=== PATIENT | male | born 1970 | race Caucasian/White ===

== ENCOUNTER 2019-03-28 06:28 | Inpatient (IN) ==
[2019-03-28] MEDS ORDERED: CeFAZolin Syr 2,000MG/20 ML 2,000 MG/20 ML SYRINGE IVPB ONE (06:55)
[2019-03-28] MEDS ORDERED: Albuterol 2.5 MG/3 ML NEBULIZER IH PRN (06:55)
[2019-03-28] MEDS ORDERED: *HR* FentaNYL (PF) 100 MCG/2 ML VIAL ONE (06:58)
[2019-03-28] MEDS ORDERED: Heparin 1,000 UNITS/500 mL 500 ML ONE (06:58)
[2019-03-28] MEDS ORDERED: *HR* Midazolam HCl 2 MG/2 ML VIAL ONE (06:58)
[2019-03-28] MEDS ORDERED: *HR* Propofol 200 MG/20 ML VIAL IVP ONE ×2 (06:58→10:06)
[2019-03-28] MEDS ORDERED: Lidocaine -MPF 4% 5 ML AMPUL ONE (07:00)
[2019-03-28] MEDS ORDERED: Ondansetron 4 MG/2 ML VIAL ONE (07:00)
[2019-03-28] MEDS ORDERED: Ringers Solution, Lactated 1,000 ML IVC SCH (07:00)
[2019-03-28] MEDS ORDERED: Lidocaine -MPF 2% 2 ML VIAL ONE (07:00)
[2019-03-28] MEDS ORDERED: Dexamethasone 4 MG/ML VIAL ONE (07:00)
[2019-03-28] MEDS ORDERED: *HR* Succinylcholine 200 MG/10 ML VIAL IVP ONE (07:00)
[2019-03-28] MEDS ORDERED: *HR* Heparin 5,000 UNIT/ML VIAL ONE (07:04)
[2019-03-28] MEDS ORDERED: EPHEDrine 50 MG/ML VIAL ONE (07:10)
[2019-03-28] MEDS ORDERED: *HR* Remifentanil 2 MG VIAL IVP ONE (07:16)
[2019-03-28] MEDS ORDERED: *HR* Phenylephrine 10 MG/ML VIAL ONE (07:16)
[2019-03-28] MEDS ORDERED: Protamine Sulfate 50 MG/5 ML VIAL IVP ONE (07:16)
[2019-03-28] MEDS ORDERED: Heparin 1,000 UNITS/500 mL 1,000 ML ONE (07:16)
[2019-03-28] MEDS ORDERED: *HR* HYDROmorphone (PF) 1 MG/ML SYRINGE IVP PRN (07:30)
[2019-03-28] MEDS ORDERED: *HR* OxyCODONE Immed Rel 5 MG TABLET PO PRN (07:30)
[2019-03-28] MEDS ORDERED: *HR* HYDROmorphone 2 MG/ML SYRINGE IVP PRN (07:30)
[2019-03-28] MEDS ORDERED: *HR* Promethazine 25 MG/ML VIAL IVP PRN (07:30)
[2019-03-28] MEDS ORDERED: Ondansetron 4 MG/2 ML VIAL IVP ONE (07:30)
[2019-03-28] MEDS ORDERED: Famotidine 20 MG/2 ML VIAL IVP ONE (07:30)
[2019-03-28] MEDS ORDERED: *HR* Labetalol 20 MG/4 ML SYRINGE IVP PRN ×2 (07:30→13:35)
[2019-03-28] MEDS ORDERED: NiCARdipine 2.5 MG/10 ML Syringe IVPB ONE (07:34)
[2019-03-28] MEDS ORDERED: ceFAZolin 1,000 MG, Sodium Chloride IRRigation 1,000 ML IR ONE (07:45)
[2019-03-28] MEDS ORDERED: *HR* Remifentanil 1 MG VIAL IVP ONE (10:41)
[2019-03-28] MEDS ORDERED: Ondansetron 4 MG/2 ML VIAL IVP PRN (13:35)
[2019-03-28] MEDS ORDERED: Naloxone 0.4 MG/ML INJ IVP PRN (13:35)
[2019-03-28] MEDS ORDERED: Acetaminophen 325 MG TABLET PO PRN (13:35)
[2019-03-28] MEDS: *HR* OxyCODONE Immed Rel 5 MG TABLET PO PRN ×2 (14:03→20:25)
[2019-03-28] MEDS ORDERED: Chloraseptic Spray 177 ML BOTTLE MM PRN (15:13)
[2019-03-28] MEDS ORDERED: Ketorolac 30 MG/ML VIAL IVP ONE (15:14)
[2019-03-28] MEDS: Nicotine 21 MG PATCH.TD24 TD SCH (16:19)
[2019-03-28] MEDS ORDERED: Acetaminophen IV 1,000 MG/100 ML INFUS..BTL IVPB PRN (18:00)
[2019-03-28] MEDS ORDERED: Aspirin Enteric Coated 81 MG Tablet PO SCH (18:00)
[2019-03-28] MEDS ORDERED: Metoprolol XL (24 HR) Succ 25 MG TAB.ER.24H PO SCH (18:00)
[2019-03-28] MEDS ORDERED: Isosorbide MONOnitrate (24 HR) 30 MG TAB.ER.24H PO SCH (18:00)
[2019-03-28] MEDS: Ketorolac 15 MG/ML VIAL IVP SCH (23:29)
[2019-03-29] MEDS: Ketorolac 15 MG/ML VIAL IVP SCH (05:42)
[2019-03-29 06:11] LABS: Basophils # 0.1 K/mcL (0.0-0.2); Basophils % 0.5 %; Eosinophils # 0.1 K/mcL (0.0-0.6); Eosinophils % 0.4 %; Hematocrit 38.7 % (37.5-50.1); Hemoglobin 13.1 g/dL (12.9-16.9); Immature Granulocytes % 0.4 % (0-4); Lymphocytes # 2.5 K/mcL (0.6-4.6); Lymphocytes % 20.8 %; Mean Corpuscular HGB Conc 33.9 g/dL (31.6-35.5); Mean Corpuscular Hemoglobin 30.8 pg (28.0-33.3); Mean Corpuscular Volume 90.8 fL (83.0-100.0); Mean Platelet Volume 11.3 fL (9.4-12.4); Monocytes # 0.7 K/mcL (0.0-1.3); Monocytes % 5.9 %; Neutrophils # 8.7 K/mcL (1.6-8.9); Platelet Count 215 K/mcL (140-400); Red Blood Count 4.26 M/mcL (4.19-5.50); Red Cell Distribution Width 12.7 % (11.5-14.5)
[2019-03-29 06:31] LABS: BUN/Creatinine Ratio 17 (6-26); Blood Urea Nitrogen 18 mg/dL (6-20); Calcium 8.7 mg/dL (8.6-10.3); Carbon Dioxide 27 mEq/L (23-29); Chloride 103 mEq/L (98-107); Glucose 113 mg/dL (70-105); Osmolality,Calculated 289 (280-300); Potassium 4.2 mEq/L (3.5-5.1); Sodium 138 mEq/L (136-145); eGFR For African Americans > 60 (> 60); eGFR For Non-African Americans > 60 (> 60)
[2019-03-29 06:54] VITALS: BP 122/80
[2019-03-29] MEDS: Nicotine 21 MG PATCH.TD24 TD SCH (08:59)
== END 2019-03-29 12:46 | disposition home or self-care (01) | DRG 24 ==
LOC: SAMDAY 06:28 → 2NNU 13:36
PROVIDERS: ADMIT Surgery Vascular Surgery; ATTEND Surgery Vascular Surgery

== ENCOUNTER 2019-05-30 08:22 | Observation (INO) ==
[2019-05-30] MEDS ORDERED: Ondansetron 4 MG/2 ML VIAL IVP ONE (08:47)
[2019-05-30] MEDS ORDERED: Aspirin 325 MG TABLET PO ONE (08:47)
[2019-05-30] MEDS: Nitroglycerin 0.4 MG TAB.SUBL SL SCH ×2 (08:54→08:58)
[2019-05-30 09:05] LABS: INR 1.1; Prothrombin Time 12.1 Seconds (9.4-12.1)
[2019-05-30 09:27] LABS: BUN/Creatinine Ratio 12 (6-26); Blood Urea Nitrogen 10 mg/dL (6-20); Calcium 9.3 mg/dL (8.6-10.3); Carbon Dioxide 25 mEq/L (23-29); Chloride 105 mEq/L (98-107); Glucose 103 mg/dL (70-105); Osmolality,Calculated 285 (280-300); Potassium 3.8 mEq/L (3.5-5.1); Sodium 138 mEq/L (136-145); Troponin I < 0.03 ng/mL (< 0.04); eGFR For African Americans > 60 (> 60); eGFR For Non-African Americans > 60 (> 60)
[2019-05-30 10:16] LABS: Basophils # 0.1 K/mcL (0.0-0.2); Basophils % 1.2 %; Eosinophils # 0.3 K/mcL (0.0-0.6); Eosinophils % 5.1 %; Hematocrit 43.3 % (37.5-50.1); Hemoglobin 15.2 g/dL (12.9-16.9); Immature Granulocytes % 0.2 % (0-4); Lymphocytes # 1.7 K/mcL (0.6-4.6); Lymphocytes % 28.1 %; Mean Corpuscular HGB Conc 35.1 g/dL (31.6-35.5); Mean Corpuscular Hemoglobin 30.9 pg (28.0-33.3); Mean Platelet Volume 11.2 fL (9.4-12.4); Monocytes # 0.6 K/mcL (0.0-1.3); Monocytes % 9.5 %; Neutrophils # 3.3 K/mcL (1.6-8.9); Platelet Count 237 K/mcL (140-400); Red Blood Count 4.92 M/mcL (4.19-5.50); Red Cell Distribution Width 12.8 % (11.5-14.5); Segmented Neutrophils % 55.9 %; White Blood Count 5.9 K/mcL (4.3-11.1)
[2019-05-30] MEDS ORDERED: Ondansetron ODT 4 MG TAB.RAPDIS SL PRN (12:50)
[2019-05-30] MEDS ORDERED: Naloxone 0.4 MG/ML INJ IVP PRN (12:50)
[2019-05-30] MEDS ORDERED: Heparin 1,000 UNITS/500 mL 500 ML ONE (13:02)
[2019-05-30] MEDS ORDERED: ISOVUE-370 200 ML INFUS..BTL ONE (13:02)
[2019-05-30] MEDS ORDERED: *HR* Heparin 10,000 UNIT/10 ML VIAL ONE (13:02)
[2019-05-30] MEDS ORDERED: 0.9 % Sodium Chloride 2,000 ML ONE (13:03)
[2019-05-30] MEDS ORDERED: Nitroglycerin 1,000 MCG/10 ML VIAL IV ONE (13:03)
[2019-05-30] MEDS: Nicotine 7 MG PATCH.TD24 TD SCH (13:56)
[2019-05-30] MEDS ORDERED: *HR* Midazolam HCl 2 MG/2 ML VIAL ONE (15:13)
[2019-05-30] MEDS ORDERED: *HR* FentaNYL (PF) 100 MCG/2 ML VIAL ONE (15:13)
[2019-05-30] MEDS: *HR* Heparin 5,000 UNIT/ML VIAL SQ SCH (16:57)
[2019-05-30] MEDS ORDERED: Metoprolol XL (24 HR) Succ 25 MG TAB.ER.24H PO SCH (18:00)
[2019-05-30] MEDS ORDERED: Isosorbide MONOnitrate (24 HR) 30 MG TAB.ER.24H PO SCH (18:00)
[2019-05-31 04:35] LABS: Basophils # 0.1 K/mcL (0.0-0.2); Eosinophils # 0.4 K/mcL (0.0-0.6); Eosinophils % 6.1 %; Hematocrit 43.6 % (37.5-50.1); Hemoglobin 14.4 g/dL (12.9-16.9); Immature Granulocytes % 0.3 % (0-4); Lymphocytes % 32.5 %; Mean Corpuscular Hemoglobin 30.1 pg (28.0-33.3); Mean Platelet Volume 11.4 fL (9.4-12.4); Monocytes # 0.6 K/mcL (0.0-1.3); Monocytes % 9.2 %; Neutrophils # 3.2 K/mcL (1.6-8.9); Platelet Count 217 K/mcL (140-400); Red Blood Count 4.79 M/mcL (4.19-5.50); Red Cell Distribution Width 12.7 % (11.5-14.5); Segmented Neutrophils % 50.9 %; White Blood Count 6.2 K/mcL (4.3-11.1)
[2019-05-31 04:49] LABS: Chol/HDL Ratio 9.2 (0-4.9)
[2019-05-31 04:51] LABS: BUN/Creatinine Ratio 11 (6-26); Blood Urea Nitrogen 12 mg/dL (6-20); Carbon Dioxide 27 mEq/L (23-29); Chloride 106 mEq/L (98-107); Glucose 92 mg/dL (70-105); Osmolality,Calculated 287 (280-300); Potassium 3.9 mEq/L (3.5-5.1); Sodium 139 mEq/L (136-145); eGFR For African Americans > 60 (> 60); eGFR For Non-African Americans > 60 (> 60)
[2019-05-31] MEDS: *HR* Heparin 5,000 UNIT/ML VIAL SQ SCH (05:54)
[2019-05-31 06:31] VITALS: BP 107/70
[2019-05-31] MEDS: Nicotine 7 MG PATCH.TD24 TD SCH (09:09)
[2019-05-31 09:41] LABS: Estimated Average Glucose 120 mg/dl
[2019-05-31] MEDS ORDERED: Aspirin Enteric Coated 81 MG Tablet PO SCH (18:00)
[2019-06-01] MEDS ORDERED: ceFAZolin 1,000 MG, Sodium Chloride IRRigation 1,000 ML IR ONE (17:30)
== END 2019-05-31 10:40 | disposition home or self-care (01) ==
LOC: 3BNU 08:22 → EMEROOARM 08:22 → SUATTDRO 10:12 → 3BNU 11:56
PROVIDERS: ADMIT Internal Medicine; ATTEND Internal Medicine

== ENCOUNTER 2019-11-21 12:22 | Inpatient (IN) ==
[~2019-11-21 12:22] MED LIST: ceFAZolin 1,000 MG, Sodium Chloride IRRigation 1,000 ML IR ONE
[2019-11-21] MEDS ORDERED: Heparin 1,000 UNITS/500 mL 0 ML ONE (12:52)
[2019-11-21] MEDS ORDERED: Clindamycin 900 MG/50 ML 900 MG/50 ML IV.SOLN IVPB ONE (12:54)
[2019-11-21] MEDS ORDERED: *HR* Vasopressin 20 UNIT/ML VIAL ONE (13:04)
[2019-11-21] MEDS ORDERED: *HR* Midazolam HCl 2 MG/2 ML VIAL ONE (13:08)
[2019-11-21] MEDS ORDERED: *HR* FentaNYL (PF) 100 MCG/2 ML VIAL ONE (13:08)
[2019-11-21] MEDS ORDERED: *HR* Propofol 200 MG/20 ML VIAL IVP ONE (13:08)
[2019-11-21] MEDS ORDERED: Ringers Solution, Lactated 1,000 ML IVC SCH (13:15)
[2019-11-21] MEDS ORDERED: EPHEDrine 50 MG/ML VIAL ONE ×2 (13:22→17:22)
[2019-11-21] MEDS ORDERED: *HR* OxyCODONE Immed Rel 5 MG TABLET PO PRN (13:42)
[2019-11-21] MEDS ORDERED: Acetaminophen IV 1,000 MG/100 ML INFUS..BTL IVPB ONE (13:42)
[2019-11-21] MEDS ORDERED: *HR* Labetalol 20 MG/4 ML SYRINGE IVP PRN ×2 (13:42→21:44)
[2019-11-21] MEDS ORDERED: Ondansetron 4 MG/2 ML VIAL IVP ONE (13:42)
[2019-11-21] MEDS ORDERED: *HR* Promethazine 25 MG/ML VIAL IVP PRN (13:42)
[2019-11-21] MEDS ORDERED: NiCARdipine 2.5 MG/10 ML Syringe IVPB ONE (13:52)
[2019-11-21] MEDS ORDERED: diazePAM 5 MG TABLET PO ONE (15:14)
[2019-11-21] MEDS ORDERED: Protamine Sulfate 50 MG/5 ML VIAL IVP ONE (15:41)
[2019-11-21] MEDS ORDERED: Heparin 1,000 UNITS/500 mL 1,000 ML ONE (15:41)
[2019-11-21] MEDS ORDERED: Lidocaine -MPF 2% 2 ML VIAL ONE (16:05)
[2019-11-21] MEDS ORDERED: *HR* Heparin 5,000 UNIT/ML VIAL ONE (16:53)
[2019-11-21] MEDS ORDERED: *HR* HYDROMORPHONE 2 MG/ML VIAL ONE (17:00)
[2019-11-21] MEDS ORDERED: *HR* Rocuronium Bromide 50 MG/5 ML VIAL ONE (17:15)
[2019-11-21] MEDS: *HR* FentaNYL (PF) 100 MCG/2 ML VIAL IVP PRN ×2 (20:38→20:59)
[2019-11-21] MEDS ORDERED: Ondansetron 4 MG/2 ML VIAL IVP PRN (21:44)
[2019-11-21] MEDS ORDERED: hydrOXYzine pamoate 25 MG CAPSULE PO SCH (21:44)
[2019-11-21] MEDS ORDERED: Naloxone 0.4 MG/ML INJ IVP PRN (21:44)
[2019-11-21] MEDS ORDERED: Acetaminophen 325 MG TABLET PO PRN (21:44)
[2019-11-21] MEDS ORDERED: Vancomycin 1,500 MG/265 ML IV.SOLN IVPB ONE (21:44)
[2019-11-21] MEDS ORDERED: Acetaminophen IV 500 MG/50 ML INFUS..BTL IVPB ONE (22:30)
[2019-11-21] MEDS: *HR* OxyCODONE Immed Rel 5 MG TABLET PO PRN (23:00)
[2019-11-22] MEDS: *HR* OxyCODONE Immed Rel 5 MG TABLET PO PRN ×2 (04:32→12:53)
[2019-11-22 04:37] LABS: Basophils % 0.3 %; Eosinophils % 0.1 %; Hematocrit 39.5 % (37.5-50.1); Immature Granulocytes % 0.3 % (0-4); Lymphocytes # 1.6 K/mcL (0.6-4.6); Lymphocytes % 12.7 %; Mean Corpuscular HGB Conc 33.7 g/dL (31.6-35.5); Mean Corpuscular Hemoglobin 31.1 pg (28.0-33.3); Mean Corpuscular Volume 92.5 fL (83.0-100.0); Mean Platelet Volume 11.3 fL (9.4-12.4); Monocytes % 5.1 %; Neutrophils # 10.3 K/mcL (1.6-8.9); Platelet Count 230 K/mcL (140-400); Red Blood Count 4.27 M/mcL (4.19-5.50); Red Cell Distribution Width 12.8 % (11.5-14.5); Segmented Neutrophils % 81.5 %
[2019-11-22 04:40] LABS: Hemoglobin 13.3 g/dL (12.9-16.9); Monocytes # 0.6 K/mcL (0.0-1.3); White Blood Count 12.6 K/mcL (4.3-11.1)
[2019-11-22 04:53] LABS: BUN/Creatinine Ratio 12 (6-26); Blood Urea Nitrogen 11 mg/dL (6-20); Calcium 8.7 mg/dL (8.6-10.3); Carbon Dioxide 25 mEq/L (23-29); Chloride 103 mEq/L (98-107); Glucose 130 mg/dL (70-105); Osmolality,Calculated 285 (280-300); Potassium 4.3 mEq/L (3.5-5.1); Sodium 137 mEq/L (136-145); eGFR For African Americans > 60 (> 60); eGFR For Non-African Americans > 60 (> 60)
[2019-11-22] MEDS ORDERED: Cholecalciferol (D-3) 1,000 UNIT (25MCG) TABLET PO SCH (09:00)
[2019-11-22 17:08] VITALS: BP 155/87
[2019-11-22] MEDS ORDERED: Metoprolol XL (24 HR) Succ 25 MG TAB.ER.24H PO SCH (18:00)
[2019-11-22] MEDS ORDERED: Isosorbide MONOnitrate (24 HR) 30 MG TAB.ER.24H PO SCH (18:00)
[2019-11-22] MEDS ORDERED: Aspirin Enteric Coated 81 MG Tablet PO SCH (18:00)
== END 2019-11-22 19:05 | disposition home or self-care (01) | DRG 24 ==
LOC: SAMDAY 12:22 → 2NNU 21:39
PROVIDERS: ADMIT Surgery Vascular Surgery; ATTEND Surgery Vascular Surgery